=== PATIENT | female | born 1940 | race Caucasian/White ===

== ENCOUNTER 2018-01-22 10:12 | Inpatient (IN) | payer MEDICARE, BC ==
[~2018-01-22] VITALS: Ht 160 cm; Wt 69.9 kg
[2018-01-22] VITALS (12 sets, daily range): BP systolic 141–171; BP diastolic 66–99
[~2018-01-22 10:12] MED LIST: ASPI-4 PO; CARV-50 PO; CLOP75TA35 PO; ENAL5TAB PO; GLYB5TAB7 PO; HYDR12.55 PO; NITR0.4T51 SL
[2018-01-22] MEDS ORDERED: normal saline 1000ml 1,000 ML IV SCH (11:00)
[2018-01-22] MEDS ORDERED: LORazepam 0.5 MG tablet PO PRN (11:00)
[2018-01-22] MEDS ORDERED: diphenhydrAMINE 25mg capsule PO PRN (11:00)
[2018-01-22] MEDS ORDERED: nitroGLYCERIN 0.4mg SUBLingual tab SL PRN (11:00)
[2018-01-22] MEDS ORDERED: dextrose ORAL solution 15 GM/59 ML bottle PO PRN ×2 (11:05)
[2018-01-22] MEDS ORDERED: dextrose 50%-water 50ml dispensing syringe IV PRN ×2 (11:05)
[2018-01-22] MEDS ORDERED: MESSAGE TO PHARMACY PO ONE ×2 (11:05→16:15)
[2018-01-22] MEDS ORDERED: glucagon, human recombinant 1mg kit SUBCUT PRN (11:05)
[2018-01-22] MEDS ORDERED: midazolam 2 mg/2 ml injection ONE (11:51)
[2018-01-22] MEDS ORDERED: LIDOcaine 1% (10mg/ml)w/preservative injection 20ml MDV ONE (11:52)
[2018-01-22] MEDS ORDERED: fentaNYL/PF 50MCG/1 ML 2ML syringe ONE (11:52)
[2018-01-22] MEDS ORDERED: iohexol 350 MG/ML 50ML vial IV ONE ×2 (11:52→12:52)
[2018-01-22] MEDS ORDERED: iohexol 350MG/ML 100ml bottle IV ONE (11:52)
[2018-01-22] MEDS ORDERED: hydrALAZINE 20mg/ml inj. IV ONE (12:37)
[2018-01-22] MEDS ORDERED: furosemide 40mg/4ml inj ONE (13:10)
[2018-01-22 14:05] LABS: ISTAT HGB ART 9.9 g/dl (12.0-16.0); ISTAT Hct ART 29 %PCV (35-48); ISTAT O2 SATURATION ARTERIAL 93 % (95-98); ISTAT SOURCE ART
[2018-01-22 14:05] LABS: ISTAT Hct MIX 28 %PCV (35-48); ISTAT O2 SATURATION MIX VENOUS 62 % (60-80); ISTAT SOURCE MIX
[2018-01-22] MEDS ORDERED: HYDROcodone/acetaminophen 5mg/325mg tablet PO PRN (14:15)
[2018-01-22] MEDS ORDERED: acetaminophen 325mg tablet PO PRN ×2 (14:15→16:15)
[2018-01-22] MEDS ORDERED: proCHLORperazine 10 MG/2 ml inj IV PRN (14:15)
[2018-01-22] MEDS ORDERED: OXAZEpam 15mg capsule PO PRN (14:15)
[2018-01-22] MEDS ORDERED: potassium Cl 20 mEq SR tablet PO ONE (14:20)
[2018-01-22] MEDS ORDERED: MESSAGE TO NURSING PO ONE ×4 (15:10)
[2018-01-22] MEDS: HYDROcodone/acetaminophen 10/325mg tab PO PRN ×2 (16:06→22:07)
[2018-01-22] MEDS ORDERED: magnesium Cl slow-release 64mg tablet PO PRN (16:15)
[2018-01-22] MEDS ORDERED: magnesium 4gm in 100ml NS 100 ML IV PRN (16:15)
[2018-01-22] MEDS ORDERED: magnesium 1gm/100ml D5W IVPB 100 ML IV PRN (16:15)
[2018-01-22] MEDS ORDERED: mag hydrox/Alum hydrox/simeth 30ml oral suspension PO PRN (16:15)
[2018-01-22] MEDS ORDERED: potassium Cl 40MEQ/NS 500ml 500 ML IV PRN ×2 (16:15)
[2018-01-22] MEDS ORDERED: magnesium hydroxide 30ml (MOM) UD suspension PO PRN (16:15)
[2018-01-22] MEDS ORDERED: potassium Cl 20 mEq SR tablet PO PRN (16:15)
[2018-01-22] MEDS ORDERED: ondansetron/PF 4mg/2ml inj IV PRN (16:15)
[2018-01-22] MEDS ORDERED: bisacodyl 10mg suppository rectal RC PRN (16:15)
[2018-01-22 18:54] LABS: INR 1.1 INR; PARTIAL THROMBOPLASTIN TIME 25 SECONDS (22-32); PROTHROMBIN TIME 11.5 SECONDS (9.0-12.0)
[2018-01-22 18:58] LABS: HEMATOCRIT 33.7 % (35.0-45.0); HEMOGLOBIN 11.6 g/dl (12.0-16.0); MEAN CORPUSCULAR HGB CONC 34.4 % (33.0-36.5); MEAN CORPUSCULAR VOLUME 98.8 FL (78-98); MEAN PLATELET VOLUME 8.1 FL (7.4-10.4); PLATELET COUNT 253 X10'3 (140-440); RED BLOOD COUNT 3.41 X10'6 (4.20-5.60); RED CELL DISTRIBUTION WIDTH 12.7 % (11.5-14.5); WHITE BLOOD COUNT 9.3 X10'3 (4.5-11.0)
[2018-01-22 18:59] LABS: ALANINE AMINOTRANSFERASE 61 U/L (12-78); ALBUMIN 3.2 G/DL (3.4-5.0); ALKALINE PHOSPHATASE 144 IU/L (46-116); ANION GAP 10 (8-16); ASPARTATE AMINO TRANSFERASE 43 U/L (10-37); BILIRUBIN,TOTAL 0.9 MG/DL (0.1-1.0); BLOOD UREA NITROGEN 27 MG/DL (7-18); CALCIUM 8.8 MG/DL (8.5-10.1); CHLORIDE 106 MMOL/L (99-107); CREATININE 0.93 MG/DL (0.40-0.90); GLUCOSE 226 MG/DL (70-104); POTASSIUM 3.2 MMOL/L (3.5-5.1); SODIUM 142 MMOL/L (135-145); TOTAL PROTEIN 6.4 G/DL (6.4-8.2); eGFR 58 ML/MIN
[2018-01-22] MEDS: heparin, porcine 5000 units/ml vial SQ SCH (20:00)
[2018-01-22] MEDS ORDERED: furosemide 20 MG/2 ML vial IV SCH (20:00)
[2018-01-22] MEDS: mupirocin 2% nasal ointment 1gm UD NS SCH (20:26)
[2018-01-22] MEDS: docusate sod 100mg capsule PO SCH (20:26)
[2018-01-22] MEDS: carVEDilol 12.5mg tablet PO SCH (20:26)
[2018-01-22] MEDS: insulin Lispro (HumaLOG) vial - multi-dose SQ SCH (20:38)
[2018-01-22] MEDS: insulin glargine (Lantus) pen - multi-dose SQ SCH (22:09)
[2018-01-22] MEDS: sodium chloride 0.45% 1,000 ML IV SCH (22:21)
[2018-01-23 02:00] VITALS: BP 141/80
[2018-01-23 06:00] VITALS: BP 137/81
[2018-01-23 06:57] LABS: BASOPHILS # (AUTO) 0.1 X10'3 (0-0.2); BASOPHILS % (AUTO) 0.6 % (0-1); EOSINOPHILS # (AUTO) 0.4 X10'3 (0-0.9); HEMATOCRIT 30.8 % (35.0-45.0); HEMOGLOBIN 10.9 g/dl (12.0-16.0); LYMPHOCYTES # (AUTO) 1.6 X10'3 (1.1-4.8); LYMPHOCYTES % (AUTO) 18.1 % (21-51); MEAN CORPUSCULAR HEMOGLOBIN 34.5 PG (27.0-31.0); MEAN CORPUSCULAR HGB CONC 35.4 % (33.0-36.5); MEAN CORPUSCULAR VOLUME 97.4 FL (78-98); MONOCYTES % (AUTO) 11.1 % (2-12); NEUTROPHILS # (AUTO) 5.7 X10'3 (1.8-7.7); NEUTROPHILS % (AUTO) 66.2 % (42-75); PLATELET COUNT 262 X10'3 (140-440); RED BLOOD COUNT 3.17 X10'6 (4.20-5.60); RED CELL DISTRIBUTION WIDTH 13.1 % (11.5-14.5); WHITE BLOOD COUNT 8.8 X10'3 (4.5-11.0)
[2018-01-23 07:04] LABS: ANION GAP 9 (8-16); BLOOD UREA NITROGEN 30 MG/DL (7-18); BUN/CREATININE RATIO 32.3 (6.6-38.0); CALCIUM 8.7 MG/DL (8.5-10.1); CHLORIDE 108 MMOL/L (99-107); CREATININE 0.93 MG/DL (0.40-0.90); GLUCOSE 83 MG/DL (70-104); MAGNESIUM 1.8 MG/DL (1.5-2.4); POTASSIUM 3.4 MMOL/L (3.5-5.1); SODIUM 144 MMOL/L (135-145); TOTAL CARBON DIOXIDE 26.8 MMOL/L (24-32); eGFR 58 ML/MIN
[2018-01-23] MEDS: mupirocin 2% nasal ointment 1gm UD NS SCH ×2 (08:00→20:12)
[2018-01-23] MEDS ORDERED: glimepiride 1 MG tablet PO SCH (08:00)
[2018-01-23] MEDS: K and/or MAG REPLACEMENT MC SCH (08:00)
[2018-01-23] MEDS: potassium chloride 10mEq ER tablet PO SCH (08:00)
[2018-01-23] MEDS ORDERED: albuterol 2.5 MG/3 ML nebule NEB ONE (08:40)
[2018-01-23 08:56] LABS: ABG BASE EXCESS -0.9 mmol/L (-2.0-3.0); ABG HCO3 22.7 mmol/L (22.0-26.0); ABG OXYGEN SATURATION 96.4 % (95-98); ABG PCO2 (T) 33.9 mmHg (32.0-45.0); ABG PH (T) 7.443 (7.350-7.450); ABG PO2 (T) 76.2 mmHg (83-108); ALLEN'S TEST Positive; FCOHb 0.7 % (0.5-1.5); FMetHb 0.1 % (0.3-1.12); FO2Hb 95.6 % (94-100); TOTAL HEMOGLOBIN 11.6 G/dl (12.0-16.0)
[2018-01-23] MEDS: potassium Cl 20 mEq SR tablet PO PRN ×3 (09:21→17:48)
[2018-01-23] MEDS: carVEDilol 12.5mg tablet PO SCH ×2 (09:21→20:13)
[2018-01-23] MEDS: furosemide 40mg tablet PO SCH (09:22)
[2018-01-23] MEDS: heparin, porcine 5000 units/ml vial SQ SCH (09:22)
[2018-01-23] MEDS: docusate sod 100mg capsule PO SCH ×2 (09:22→20:13)
[2018-01-23] MEDS ORDERED: MESSAGE TO NURSING PO ONE (10:00)
[2018-01-23 11:00] VITALS: BP 148/86
[2018-01-23] MEDS: insulin Lispro (HumaLOG) vial - multi-dose SQ SCH ×2 (13:55→19:23)
[2018-01-23 15:00] VITALS: BP 139/73
[2018-01-23 18:00] VITALS: BP 142/76
[2018-01-23] MEDS: HYDROcodone/acetaminophen 10/325mg tab PO PRN (20:12)
[2018-01-23] MEDS: insulin glargine (Lantus) pen - multi-dose SQ SCH (21:41)
[2018-01-23 22:00] VITALS: BP 129/64
[2018-01-24 02:00] VITALS: BP 112/65
[2018-01-24 06:00] VITALS: BP 128/71
[2018-01-24 06:39] LABS: BASOPHILS % (AUTO) 0.4 % (0-1); EOSINOPHILS # (AUTO) 0.3 X10'3 (0-0.9); HEMATOCRIT 31.5 % (35.0-45.0); HEMOGLOBIN 10.9 g/dl (12.0-16.0); LYMPHOCYTES # (AUTO) 1.5 X10'3 (1.1-4.8); LYMPHOCYTES % (AUTO) 16.9 % (21-51); MEAN CORPUSCULAR HEMOGLOBIN 34.2 PG (27.0-31.0); MEAN CORPUSCULAR HGB CONC 34.6 % (33.0-36.5); MEAN CORPUSCULAR VOLUME 98.7 FL (78-98); MEAN PLATELET VOLUME 7.9 FL (7.4-10.4); MONOCYTES # (AUTO) 0.9 X10'3 (0-0.9); MONOCYTES % (AUTO) 10.3 % (2-12); NEUTROPHILS # (AUTO) 6.4 X10'3 (1.8-7.7); NEUTROPHILS % (AUTO) 69.4 % (42-75); PLATELET COUNT 245 X10'3 (140-440); RED BLOOD COUNT 3.19 X10'6 (4.20-5.60); RED CELL DISTRIBUTION WIDTH 12.8 % (11.5-14.5); WHITE BLOOD COUNT 9.1 X10'3 (4.5-11.0)
[2018-01-24 06:51] LABS: ALBUMIN 2.8 G/DL (3.4-5.0); ANION GAP 8 (8-16); BLOOD UREA NITROGEN 30 MG/DL (7-18); BUN/CREATININE RATIO 30.9 (6.6-38.0); CALCIUM 8.9 MG/DL (8.5-10.1); CHLORIDE 104 MMOL/L (99-107); CREATININE 0.97 MG/DL (0.40-0.90); GLUCOSE 79 MG/DL (70-104); MAGNESIUM 1.7 MG/DL (1.5-2.4); SODIUM 139 MMOL/L (135-145); TOTAL CARBON DIOXIDE 27.5 MMOL/L (24-32); eGFR 56 ML/MIN
[2018-01-24] MEDS: sodium chloride 0.45% 1,000 ML IV SCH (07:55)
[2018-01-24] MEDS: mupirocin 2% nasal ointment 1gm UD NS SCH (08:00)
[2018-01-24] MEDS: K and/or MAG REPLACEMENT MC SCH (08:00)
[2018-01-24] MEDS: potassium chloride 10mEq ER tablet PO SCH (08:09)
[2018-01-24] MEDS: docusate sod 100mg capsule PO SCH ×2 (08:09→19:38)
[2018-01-24] MEDS: furosemide 40mg tablet PO SCH (08:09)
[2018-01-24] MEDS: carVEDilol 12.5mg tablet PO SCH ×2 (08:09→19:38)
[2018-01-24] MEDS: insulin Lispro (HumaLOG) vial - multi-dose SQ SCH ×3 (09:11→19:27)
[2018-01-24 11:00] VITALS: BP 119/69
[2018-01-24] MEDS: HYDROcodone/acetaminophen 10/325mg tab PO PRN ×2 (11:53→22:24)
[2018-01-24 15:00] VITALS: BP 115/67
[2018-01-24 18:00] VITALS: BP 114/64
[2018-01-24 22:00] VITALS: BP 143/80
[2018-01-24] MEDS: insulin glargine (Lantus) pen - multi-dose SQ SCH (22:21)
[2018-01-25 02:00] VITALS: BP 127/71
[2018-01-25 06:35] LABS: BASOPHILS % (AUTO) 0.2 % (0-1); EOSINOPHILS # (AUTO) 0.2 X10'3 (0-0.9); EOSINOPHILS % (AUTO) 1.3 % (0-6); HEMATOCRIT 31.7 % (35.0-45.0); HEMOGLOBIN 11.3 g/dl (12.0-16.0); LYMPHOCYTES % (AUTO) 7.7 % (21-51); MEAN CORPUSCULAR HEMOGLOBIN 34.7 PG (27.0-31.0); MEAN CORPUSCULAR HGB CONC 35.5 % (33.0-36.5); MEAN PLATELET VOLUME 7.7 FL (7.4-10.4); MONOCYTES # (AUTO) 1.2 X10'3 (0-0.9); MONOCYTES % (AUTO) 9.4 % (2-12); NEUTROPHILS # (AUTO) 10.2 X10'3 (1.8-7.7); NEUTROPHILS % (AUTO) 81.4 % (42-75); PLATELET COUNT 240 X10'3 (140-440); RED BLOOD COUNT 3.24 X10'6 (4.20-5.60); RED CELL DISTRIBUTION WIDTH 12.8 % (11.5-14.5); WHITE BLOOD COUNT 12.6 X10'3 (4.5-11.0)
[2018-01-25 06:39] LABS: ALBUMIN 2.8 G/DL (3.4-5.0); ANION GAP 8 (8-16); BLOOD UREA NITROGEN 30 MG/DL (7-18); BUN/CREATININE RATIO 38.5 (6.6-38.0); CALCIUM 8.4 MG/DL (8.5-10.1); CHLORIDE 100 MMOL/L (99-107); CREATININE 0.78 MG/DL (0.40-0.90); GLUCOSE 82 MG/DL (70-104); MAGNESIUM 1.8 MG/DL (1.5-2.4); POTASSIUM 3.8 MMOL/L (3.5-5.1); SODIUM 136 MMOL/L (135-145); TOTAL CARBON DIOXIDE 27.8 MMOL/L (24-32); eGFR 71 ML/MIN
[2018-01-25 06:50] VITALS: BP 131/70
[2018-01-25] MEDS: ondansetron/PF 4mg/2ml inj IV PRN ×2 (07:45→13:42)
[2018-01-25] MEDS: HYDROcodone/acetaminophen 10/325mg tab PO PRN (07:46)
[2018-01-25] MEDS: carVEDilol 12.5mg tablet PO SCH ×2 (07:47→20:58)
[2018-01-25] MEDS: furosemide 40mg tablet PO SCH (07:47)
[2018-01-25] MEDS: potassium chloride 10mEq ER tablet PO SCH (07:47)
[2018-01-25] MEDS: docusate sod 100mg capsule PO SCH ×2 (07:47→20:58)
[2018-01-25] MEDS: K and/or MAG REPLACEMENT MC SCH (08:00)
[2018-01-25] MEDS ORDERED: HYDROcodone/acetaminophen 10/325mg tab PO ONE (10:15)
[2018-01-25 11:00] VITALS: BP 106/58
[2018-01-25] MEDS ORDERED: vancomycin/NS 1 GM ADD-VANTAGE 250 ML IV ONE (11:00)
[2018-01-25] MEDS ORDERED: ceFAZolin 2gm in dextrose, iso 100 ML IV ONE (11:00)
[2018-01-25 15:00] VITALS: BP 111/61
[2018-01-25 19:00] VITALS: BP 121/59
[2018-01-25] MEDS ORDERED: mupirocin 2% ointment 22GM NS SCH (20:00)
[2018-01-25] MEDS ORDERED: dextrose 50%-water 50ml dispensing syringe IV PRN (20:55)
[2018-01-25] MEDS: mupirocin 2% nasal ointment 1gm UD NS SCH (20:59)
[2018-01-25] MEDS: insulin glargine (Lantus) pen - multi-dose SQ SCH (21:22)
[2018-01-25 23:00] VITALS: BP 123/64
[2018-01-25] MEDS: sodium chloride 0.45% 1,000 ML IV SCH (23:55)
[2018-01-26] VITALS (12 sets, daily range): BP systolic 108–142; BP diastolic 48–74
[2018-01-26] MEDS: HYDROcodone/acetaminophen 10/325mg tab PO PRN (01:44)
[2018-01-26 05:17] LABS: INR 1.2 INR
[2018-01-26 05:21] LABS: BASOPHILS % (AUTO) 0.2 % (0-1); EOSINOPHILS # (AUTO) 0.1 X10'3 (0-0.9); EOSINOPHILS % (AUTO) 0.5 % (0-6); HEMATOCRIT 28.3 % (35.0-45.0); LYMPHOCYTES # (AUTO) 0.8 X10'3 (1.1-4.8); LYMPHOCYTES % (AUTO) 5.5 % (21-51); MEAN CORPUSCULAR HEMOGLOBIN 34.8 PG (27.0-31.0); MEAN CORPUSCULAR HGB CONC 35.3 % (33.0-36.5); MEAN CORPUSCULAR VOLUME 98.6 FL (78-98); MEAN PLATELET VOLUME 7.9 FL (7.4-10.4); MONOCYTES # (AUTO) 1.4 X10'3 (0-0.9); MONOCYTES % (AUTO) 9.6 % (2-12); NEUTROPHILS # (AUTO) 11.8 X10'3 (1.8-7.7); NEUTROPHILS % (AUTO) 84.2 % (42-75); PLATELET COUNT 215 X10'3 (140-440); RED BLOOD COUNT 2.87 X10'6 (4.20-5.60); RED CELL DISTRIBUTION WIDTH 12.3 % (11.5-14.5); WHITE BLOOD COUNT 14.1 X10'3 (4.5-11.0)
[2018-01-26 05:23] LABS: ALBUMIN 2.5 G/DL (3.4-5.0); ANION GAP 6 (8-16); BLOOD UREA NITROGEN 32 MG/DL (7-18); BUN/CREATININE RATIO 31.7 (6.6-38.0); CALCIUM 8.7 MG/DL (8.5-10.1); CHLORIDE 99 MMOL/L (99-107); CREATININE 1.01 MG/DL (0.40-0.90); GLUCOSE 165 MG/DL (70-104); MAGNESIUM 2.1 MG/DL (1.5-2.4); POTASSIUM 4.2 MMOL/L (3.5-5.1); SODIUM 134 MMOL/L (135-145); TOTAL CARBON DIOXIDE 29.1 MMOL/L (24-32); eGFR 53 ML/MIN
[2018-01-26] MEDS ORDERED: ringers solution, lacted 1,000 ML IV SCH (05:30)
[2018-01-26] MEDS ORDERED: ceFAZolin 2gm in dextrose, iso 100 ML IV ONE (05:30)
[2018-01-26] MEDS ORDERED: vancomycin/NS 1 GM ADD-VANTAGE 250 ML IV ONE (05:30)
[2018-01-26] MEDS ORDERED: LORazepam 2 mg/ml vial IV ONE (06:00)
[2018-01-26] MEDS ORDERED: famotidine 20mg tablet PO ONE ×2 (06:00→06:21)
[2018-01-26] MEDS ORDERED: ePHEDrine 50MG/ML INJ. ONE (06:46)
[2018-01-26] MEDS ORDERED: protamine sulf. 10mg/ml inj. IV ONE (06:46)
[2018-01-26] MEDS ORDERED: sevoflurane 250ml liquid IH ONE (06:46)
[2018-01-26] MEDS ORDERED: DOPamine/D5W 400mg/250ml bag IV ONE (06:46)
[2018-01-26] MEDS ORDERED: INSULIN R 100 UNIT in NS 100ML (1 UNIT/1 ML) BAG IV ONE (06:46)
[2018-01-26] MEDS ORDERED: aminocaproic acid 250 MG/1 ML inj. ONE (06:46)
[2018-01-26] MEDS ORDERED: MIDAZolam 1mg/ml 10ml vial ONE (06:50)
[2018-01-26] MEDS ORDERED: SUFENTANIL CITRATE 50 MCG/ML 2ml ampule IV ONE (06:50)
[2018-01-26] MEDS ORDERED: rocuronium 10mg/ml inj IV ONE ×2 (06:59→07:46)
[2018-01-26] MEDS ORDERED: propofol inj 20 ML IV ONE (06:59)
[2018-01-26 07:45] LABS: ABG HCO3 24.5 mmol/L (22.0-26.0); ABG OXYGEN SATURATION 98.8 % (95-98); ABG PCO2 34.8 mmHg (35.0-45.0); ABG PH 7.466 (7.350-7.450); ABG PO2 139.4 mmHg (60.0-100.0); CL (ABG) 96 mmol/L (99-107); FCOHb 1.7 % (0.5-1.5); FMetHb 0.2 % (0.3-1.12); FO2Hb 96.9 % (94-100); GLUCOSE (ABG) 144 mg/dl (70-105); IONIZED CA (ABG) 1.09 mmol/L (1.03-1.32); K (ABG) 3.8 mmol/L (3.3-5.1); NA (ABG) 125 mmol/L (135-145); TOTAL HEMOGLOBIN 9.1 G/dl (12.0-16.0)
[2018-01-26] MEDS ORDERED: heparin 10,000 units/1 ML INJ IR ONE (07:48)
[2018-01-26] MEDS ORDERED: papaverine 30 mg/ml 2ml inj. IA ONE (07:49)
[2018-01-26] MEDS: mupirocin 2% nasal ointment 1gm UD NS SCH ×2 (08:00→20:10)
[2018-01-26] MEDS: K and/or MAG REPLACEMENT MC SCH (08:00)
[2018-01-26] MEDS: furosemide 40mg tablet PO SCH (08:00)
[2018-01-26] MEDS: potassium chloride 10mEq ER tablet PO SCH (08:00)
[2018-01-26] MEDS: carVEDilol 12.5mg tablet PO SCH (08:00)
[2018-01-26] MEDS: docusate sod 100mg capsule PO SCH ×2 (08:00→20:00)
[2018-01-26] MEDS ORDERED: papaverine 30 mg/ml 2ml inj. ONE (09:00)
[2018-01-26] MEDS ORDERED: potassium Cl 2 mEq/ml inj IV ONE (09:00)
[2018-01-26] MEDS ORDERED: heparin 10,000 units/1 ML INJ ONE (09:00)
[2018-01-26] MEDS ORDERED: insulin Lispro (HumaLOG) vial - multi-dose SQ SCH (09:00)
[2018-01-26 09:05] LABS: ABG BASE EXCESS 0.5 mmol/L (-2.0-3.0); ABG HCO3 24.8 mmol/L (22.0-26.0); ABG OXYGEN SATURATION 99.8 % (95-98); ABG PCO2 37.8 mmHg (35.0-45.0); ABG PH 7.434 (7.350-7.450); ABG PO2 422.5 mmHg (60.0-100.0); CL (ABG) 98 mmol/L (99-107); FCOHb 2.2 % (0.5-1.5); FO2Hb 97.6 % (94-100); GLUCOSE (ABG) 104 mg/dl (70-105); IONIZED CA (ABG) 1.02 mmol/L (1.03-1.32); K (ABG) 4.6 mmol/L (3.3-5.1); NA (ABG) 126 mmol/L (135-145); TOTAL HEMOGLOBIN 7.3 G/dl (12.0-16.0)
[2018-01-26 09:30] LABS: ABG BASE EXCESS VENOUS 1.4 mmol/L; ABG HCO3 VENOUS 26.4 mmol/L; ABG PCO2 VENOUS 43.5 mmHg; ABG PO2 VENOUS 51.9 mmHg; CL (ABG) 99 mmol/L (99-107); FCOHb VENOUS 1.8 %; FHHb VENOUS 9.7 %; FMetHb VENOUS 0.1 %; FO2Hb VENOUS 88.4 %; GLUCOSE (ABG) 120 mg/dl (70-105); IONIZED CA (ABG) 1.02 mmol/L (1.03-1.32); K (ABG) 4.5 mmol/L (3.3-5.1); NA (ABG) 126 mmol/L (135-145); TOTAL HEMOGLOBIN 8.3 G/dl (12.0-16.0)
[2018-01-26 09:55] LABS: ACT @ 1.70 U 350 SEC (193-297); ACT @ 2.84 U 516 SEC (260-420); BASELINE ACT 157 SEC (101-148); PATIENT WEIGHT 63.0k KG
[2018-01-26 09:55] LABS: ABG OXYGEN SATURATION 99.1 % (95-98); ABG PCO2 43.2 mmHg (35.0-45.0); ABG PH 7.397 (7.350-7.450); ABG PO2 248.3 mmHg (60.0-100.0); CL (ABG) 100 mmol/L (99-107); FCOHb 1.1 % (0.5-1.5); FMetHb 0.2 % (0.3-1.12); FO2Hb 97.8 % (94-100); GLUCOSE (ABG) 121 mg/dl (70-105); IONIZED CA (ABG) 1.06 mmol/L (1.03-1.32); K (ABG) 4.7 mmol/L (3.3-5.1); NA (ABG) 128 mmol/L (135-145)
[2018-01-26 10:20] LABS: ABG BASE EXCESS 1.9 mmol/L (-2.0-3.0); ABG HCO3 25.6 mmol/L (22.0-26.0); ABG OXYGEN SATURATION 99.2 % (95-98); ABG PH 7.469 (7.350-7.450); ABG PO2 262.7 mmHg (60.0-100.0); CL (ABG) 101 mmol/L (99-107); FCOHb 1.2 % (0.5-1.5); FMetHb 0.2 % (0.3-1.12); FO2Hb 97.8 % (94-100); GLUCOSE (ABG) 120 mg/dl (70-105); IONIZED CA (ABG) 1.05 mmol/L (1.03-1.32); K (ABG) 4.7 mmol/L (3.3-5.1); NA (ABG) 128 mmol/L (135-145); TOTAL HEMOGLOBIN 9.2 G/dl (12.0-16.0)
[2018-01-26 10:51] LABS: ABG BASE EXCESS 1.7 mmol/L (-2.0-3.0); ABG HCO3 23.7 mmol/L (22.0-26.0); ABG OXYGEN SATURATION 99.4 % (95-98); ABG PCO2 27.6 mmHg (35.0-45.0); ABG PH 7.552 (7.350-7.450); ABG PO2 308.2 mmHg (60.0-100.0); CL (ABG) 102 mmol/L (99-107); FCOHb 1.4 % (0.5-1.5); FMetHb 0.1 % (0.3-1.12); FO2Hb 97.9 % (94-100); GLUCOSE (ABG) 121 mg/dl (70-105); IONIZED CA (ABG) 1.01 mmol/L (1.03-1.32); NA (ABG) 129 mmol/L (135-145); TOTAL HEMOGLOBIN 8.7 G/dl (12.0-16.0)
[2018-01-26 11:10] LABS: ABG BASE EXCESS 3.8 mmol/L (-2.0-3.0); ABG HCO3 26.7 mmol/L (22.0-26.0); ABG OXYGEN SATURATION 99.4 % (95-98); ABG PH 7.526 (7.350-7.450); ABG PO2 362.1 mmHg (60.0-100.0); CL (ABG) 101 mmol/L (99-107); FCOHb 1.4 % (0.5-1.5); FMetHb 0.2 % (0.3-1.12); FO2Hb 97.8 % (94-100); GLUCOSE (ABG) 116 mg/dl (70-105); IONIZED CA (ABG) 1.15 mmol/L (1.03-1.32); K (ABG) 4.8 mmol/L (3.3-5.1); NA (ABG) 129 mmol/L (135-145)
[2018-01-26] MEDS ORDERED: calcium chloride 100 MG/1 ML inj IV ONE (11:25)
[2018-01-26 11:51] LABS: ABG BASE EXCESS VENOUS 2.2 mmol/L; ABG PCO2 VENOUS 43.4 mmHg; ABG PO2 VENOUS 31.2 mmHg; CL (ABG) 103 mmol/L (99-107); FCOHb VENOUS 1.6 %; FHHb VENOUS 33.5 %; FMetHb VENOUS 0.5 %; FO2Hb VENOUS 64.4 %; GLUCOSE (ABG) 133 mg/dl (70-105); IONIZED CA (ABG) 1.25 mmol/L (1.03-1.32); K (ABG) 4.3 mmol/L (3.3-5.1); NA (ABG) 129 mmol/L (135-145); TOTAL HEMOGLOBIN 8.3 G/dl (12.0-16.0)
[2018-01-26 12:06] LABS: ABG BASE EXCESS -0.8 mmol/L (-2.0-3.0); ABG HCO3 23.5 mmol/L (22.0-26.0); ABG OXYGEN SATURATION 92.8 % (95-98); ABG PCO2 37.5 mmHg (35.0-45.0); ABG PH 7.415 (7.350-7.450); ABG PO2 64.9 mmHg (60.0-100.0); CL (ABG) 104 mmol/L (99-107); FCOHb 0.9 % (0.5-1.5); FMetHb 0.3 % (0.3-1.12); FO2Hb 91.7 % (94-100); GLUCOSE (ABG) 135 mg/dl (70-105); IONIZED CA (ABG) 1.33 mmol/L (1.03-1.32); K (ABG) 4.1 mmol/L (3.3-5.1); NA (ABG) 130 mmol/L (135-145); TOTAL HEMOGLOBIN 10.1 G/dl (12.0-16.0)
[2018-01-26 12:36] LABS: ACTIVATED CLOTTING TIME 140 SEC (101-148)
[2018-01-26 12:36] LABS: ACTIVATED CLOTTING TIME 56 SEC (101-148)
[2018-01-26] MEDS ORDERED: nitroGLYCERIN-Tridil 50MG/D5W 250 ML IV PRN (12:49)
[2018-01-26] MEDS ORDERED: DOPamine 400mg/D5W 250ml 250 ML IV PRN (12:49)
[2018-01-26] MEDS ORDERED: Neutra Phos packet PO PRN (12:50)
[2018-01-26] MEDS ORDERED: acetaminophen 325mg tablet PO PRN (12:50)
[2018-01-26] MEDS ORDERED: sodium phosphate inj. 15 MMOL in dextrose 5%-water 150 ML IV PRN (12:50)
[2018-01-26] MEDS ORDERED: sodium phosphate inj. 30 MMOL in dextrose 5%-water 250 ML IV PRN (12:50)
[2018-01-26] MEDS ORDERED: potassium Cl 20mEq/100mL bag 100 ML IV PRN ×2 (12:50)
[2018-01-26] MEDS ORDERED: morphine 4 MG/ML inj SYRINge IV PRN (12:50)
[2018-01-26] MEDS ORDERED: normal saline 250ml IV soln 250 ML IV PRN (12:50)
[2018-01-26] MEDS ORDERED: magnesium 4gm in 100ml NS 100 ML IV PRN (12:50)
[2018-01-26] MEDS ORDERED: insulin regular, human inj. 100 UNITS in normal saline 100ml IV soln 100 ML IV SCH ×2 (12:50)
[2018-01-26] MEDS ORDERED: dextrose 50%-water 50ml dispensing syringe IV PRN (12:50)
[2018-01-26] MEDS ORDERED: metoclopramide 5 mg/ml inj IV PRN (12:50)
[2018-01-26] MEDS: insulin regular, human inj. 100 UNITS in normal saline 100ml IV soln 100 ML IV SCH ×4 (13:00→15:06)
[2018-01-26] MEDS: insulin Lispro (HumaLOG) vial - multi-dose SQ SCH ×2 (13:00→18:00)
[2018-01-26 13:06] LABS: ABG HCO3 21.4 mmol/L (22.0-26.0); ABG OXYGEN SATURATION 96.5 % (95-98); ABG PCO2 (T) 31.1 mmHg (32.0-45.0); ABG PO2 (T) 77.3 mmHg (83-108); FCOHb 1.4 % (0.5-1.5); FMetHb 0.2 % (0.3-1.12); MINUTE VOLUME 7 L/min; PATIENT TEMPERATURE 35.7; PEEP 5 cm H2O; RESPIRATORY RATE 12 b/min; RESPIRATORY RATE (OBSERVED) 12 b/min; TIDAL VOLUME 500 mL; TOTAL HEMOGLOBIN 14.4 G/dl (12.0-16.0)
[2018-01-26] MEDS ORDERED: albumin (Human) 5% 250ml 250 ML IV ONE (13:11)
[2018-01-26] MEDS: albumin (Human) 5% 250ml 250 ML IV PRN ×2 (13:13→14:21)
[2018-01-26 13:22] LABS: BASOPHILS % (AUTO) 0 % (0-1); EOSINOPHILS # (AUTO) 0.1 X10'3 (0-0.9); EOSINOPHILS % (AUTO) 0.4 % (0-6); HEMATOCRIT 39.9 % (35.0-45.0); LYMPHOCYTES # (AUTO) 0.6 X10'3 (1.1-4.8); LYMPHOCYTES % (AUTO) 2.2 % (21-51); MEAN CORPUSCULAR HEMOGLOBIN 33.9 PG (27.0-31.0); MEAN CORPUSCULAR VOLUME 96.9 FL (78-98); MEAN PLATELET VOLUME 7.6 FL (7.4-10.4); MONOCYTES # (AUTO) 1.3 X10'3 (0-0.9); MONOCYTES % (AUTO) 5.2 % (2-12); NEUTROPHILS # (AUTO) 23.1 X10'3 (1.8-7.7); NEUTROPHILS % (AUTO) 92.2 % (42-75); PLATELET COUNT 110 X10'3 (140-440); RED BLOOD COUNT 4.11 X10'6 (4.20-5.60)
[2018-01-26 13:34] LABS: WHITE BLOOD COUNT 25.1 X10'3 (4.5-11.0)
[2018-01-26 13:37] LABS: INR 1.4 INR; PARTIAL THROMBOPLASTIN TIME 33 SECONDS (22-32); PROTHROMBIN TIME 14.4 SECONDS (9.0-12.0)
[2018-01-26 13:55] LABS: ALANINE AMINOTRANSFERASE 14 U/L (12-78); ALBUMIN/GLOBULIN RATIO 0.9 (1.1-1.5); ALKALINE PHOSPHATASE 78 IU/L (46-116); ANION GAP 10 (8-16); ASPARTATE AMINO TRANSFERASE 43 U/L (10-37); BILIRUBIN,TOTAL 1.9 MG/DL (0.1-1.0); BLOOD UREA NITROGEN 26 MG/DL (7-18); BUN/CREATININE RATIO 32.9 (6.6-38.0); CALCIUM 9.1 MG/DL (8.5-10.1); CHLORIDE 106 MMOL/L (99-107); CREATININE 0.79 MG/DL (0.40-0.90); GLUCOSE 144 MG/DL (70-104); MAGNESIUM 3.4 MG/DL (1.5-2.4); PHOSPHORUS 2.4 MG/DL (2.3-4.5); SODIUM 138 MMOL/L (135-145); TOTAL PROTEIN 4.3 G/DL (6.4-8.2); eGFR 70 ML/MIN
[2018-01-26] MEDS: sodium chloride 0.45% 1,000 ML IV SCH (13:57)
[2018-01-26] MEDS ORDERED: methylPREDNISolone sod succ/PF 40mg inj. IV SCH (14:00)
[2018-01-26] MEDS ORDERED: niCARDipine-NS 40mg/200ml IVPB 200 ML IV ONE (14:30)
[2018-01-26 14:32] LABS: PLATELET ESTIMATE DECREASED; TOTAL CELLS COUNTED 100
[2018-01-26] MEDS: potassium Cl 20mEq/100mL bag 100 ML IV PRN ×2 (14:48→21:50)
[2018-01-26] MEDS: morphine 4 MG/ML inj SYRINge IV PRN ×4 (15:31→22:46)
[2018-01-26] MEDS: DOBUTamine-DoBUTrex 500mg/D5W 250 ML IV SCH (15:36)
[2018-01-26] MEDS: ceFAZolin 1GM/D5W- ADD-VANTAGE 50 ML IV SCH (15:36)
[2018-01-26 19:43] LABS: BASOPHILS % (AUTO) 0.1 % (0-1); EOSINOPHILS % (AUTO) 0.1 % (0-6); HEMATOCRIT 34.5 % (35.0-45.0); HEMOGLOBIN 11.9 g/dl (12.0-16.0); LYMPHOCYTES # (AUTO) 0.4 X10'3 (1.1-4.8); LYMPHOCYTES % (AUTO) 2.5 % (21-51); MEAN CORPUSCULAR HEMOGLOBIN 33.3 PG (27.0-31.0); MEAN CORPUSCULAR HGB CONC 34.5 % (33.0-36.5); MEAN CORPUSCULAR VOLUME 96.5 FL (78-98); MEAN PLATELET VOLUME 7.8 FL (7.4-10.4); MONOCYTES # (AUTO) 0.7 X10'3 (0-0.9); MONOCYTES % (AUTO) 4.4 % (2-12); NEUTROPHILS # (AUTO) 15.8 X10'3 (1.8-7.7); NEUTROPHILS % (AUTO) 92.9 % (42-75); PLATELET COUNT 107 X10'3 (140-440); RED BLOOD COUNT 3.57 X10'6 (4.20-5.60); RED CELL DISTRIBUTION WIDTH 13.8 % (11.5-14.5); WHITE BLOOD COUNT 16.9 X10'3 (4.5-11.0)
[2018-01-26 19:44] LABS: ANION GAP 9 (8-16); BLOOD UREA NITROGEN 30 MG/DL (7-18); BUN/CREATININE RATIO 32.3 (6.6-38.0); CALCIUM 8.6 MG/DL (8.5-10.1); CHLORIDE 106 MMOL/L (99-107); CREATININE 0.93 MG/DL (0.40-0.90); GLUCOSE 152 MG/DL (70-104); POTASSIUM 4.2 MMOL/L (3.5-5.1); SODIUM 139 MMOL/L (135-145); TOTAL CARBON DIOXIDE 23.7 MMOL/L (24-32); eGFR 58 ML/MIN
[2018-01-26] MEDS: vancomycin/NS 1 GM ADD-VANTAGE 250 ML IV SCH (20:10)
[2018-01-27] VITALS (23 sets, daily range): BP systolic 96–128; BP diastolic 40–73
[2018-01-27] MEDS: ceFAZolin 1GM/D5W- ADD-VANTAGE 50 ML IV SCH ×4 (00:03→23:29)
[2018-01-27 01:51] LABS: ABG BASE EXCESS -3.5 mmol/L (-2.0-3.0); ABG HCO3 17.6 mmol/L (22.0-26.0); ABG OXYGEN SATURATION 96.3 % (95-98); ABG PH (T) 7.522 (7.350-7.450); ABG PO2 (T) 74.9 mmHg (83-108); FCOHb 0.5 % (0.5-1.5); FMetHb 0.3 % (0.3-1.12); FO2Hb 95.5 % (94-100); MINUTE VOLUME 9 L/min; PEEP 5 cm H2O; TOTAL HEMOGLOBIN 11.8 G/dl (12.0-16.0)
[2018-01-27] MEDS: morphine 4 MG/ML inj SYRINge IV PRN ×4 (01:55→23:29)
[2018-01-27 02:39] LABS: INR 1.2 INR; PARTIAL THROMBOPLASTIN TIME 34 SECONDS (22-32)
[2018-01-27 02:45] LABS: ALANINE AMINOTRANSFERASE 15 U/L (12-78); ALBUMIN 2.8 G/DL (3.4-5.0); ALBUMIN/GLOBULIN RATIO 1.2 (1.1-1.5); ALKALINE PHOSPHATASE 63 IU/L (46-116); ANION GAP 13 (8-16); ASPARTATE AMINO TRANSFERASE 50 U/L (10-37); BILIRUBIN,TOTAL 1.3 MG/DL (0.1-1.0); BLOOD UREA NITROGEN 30 MG/DL (7-18); BUN/CREATININE RATIO 31.3 (6.6-38.0); CALCIUM 8.4 MG/DL (8.5-10.1); CHLORIDE 107 MMOL/L (99-107); CREATININE 0.96 MG/DL (0.40-0.90); GLUCOSE 134 MG/DL (70-104); MAGNESIUM 2.6 MG/DL (1.5-2.4); PHOSPHORUS 3.4 MG/DL (2.3-4.5); POTASSIUM 4.1 MMOL/L (3.5-5.1); SODIUM 140 MMOL/L (135-145); TOTAL CARBON DIOXIDE 20.2 MMOL/L (24-32); TOTAL PROTEIN 5.2 G/DL (6.4-8.2); eGFR 56 ML/MIN
[2018-01-27] MEDS: HYDROcodone/acetaminophen 10/325mg tab PO PRN ×3 (02:55→15:09)
[2018-01-27] MEDS: potassium Cl 20mEq/100mL bag 100 ML IV PRN (03:02)
[2018-01-27 03:05] LABS: BASOPHILS % (AUTO) 0.1 % (0-1); EOSINOPHILS % (AUTO) 0.1 % (0-6); HEMATOCRIT 32.6 % (35.0-45.0); HEMOGLOBIN 11.2 g/dl (12.0-16.0); LYMPHOCYTES # (AUTO) 0.6 X10'3 (1.1-4.8); LYMPHOCYTES % (AUTO) 3.9 % (21-51); MEAN CORPUSCULAR HEMOGLOBIN 33.4 PG (27.0-31.0); MEAN CORPUSCULAR HGB CONC 34.2 % (33.0-36.5); MEAN CORPUSCULAR VOLUME 97.7 FL (78-98); MEAN PLATELET VOLUME 8.5 FL (7.4-10.4); MONOCYTES # (AUTO) 0.7 X10'3 (0-0.9); MONOCYTES % (AUTO) 4.6 % (2-12); NEUTROPHILS # (AUTO) 13.3 X10'3 (1.8-7.7); NEUTROPHILS % (AUTO) 91.3 % (42-75); PLATELET COUNT 111 X10'3 (140-440); RED BLOOD COUNT 3.34 X10'6 (4.20-5.60); RED CELL DISTRIBUTION WIDTH 13.8 % (11.5-14.5); WHITE BLOOD COUNT 14.6 X10'3 (4.5-11.0)
[2018-01-27] MEDS: vancomycin/NS 1 GM ADD-VANTAGE 250 ML IV SCH ×2 (07:21→20:14)
[2018-01-27] MEDS: atorvastatin 10mg tablet PO SCH (07:22)
[2018-01-27] MEDS: mupirocin 2% nasal ointment 1gm UD NS SCH ×2 (07:22→20:14)
[2018-01-27] MEDS: metoprolol tartrate 12.5mg (1/2 tablet) PO SCH ×2 (07:22→20:00)
[2018-01-27] MEDS: aspirin 325mg tablet, delayed-release (Ecotrin) PO SCH (07:22)
[2018-01-27] MEDS: docusate sod 100mg capsule PO SCH ×2 (07:22→20:14)
[2018-01-27] MEDS: pantoprazole 40mg Tablet.DR PO SCH (07:22)
[2018-01-27] MEDS ORDERED: ketorolac tromethamine 15mg/ml inj. IV ONE (08:15)
[2018-01-27] MEDS ORDERED: albumin (human) 25% 100 ML IV solution IV ONE (09:00)
[2018-01-27] MEDS: insulin Lispro (HumaLOG) vial - multi-dose SQ SCH ×3 (09:00→18:00)
[2018-01-27] MEDS ORDERED: magnesium sulf 1 GM/2 ML ONE (09:00)
[2018-01-27] MEDS ORDERED: phenylephrine 10mg/ml inj. ONE (09:00)
[2018-01-27] MEDS ORDERED: heparin 1,000 units/ml 10ml inj ONE (09:00)
[2018-01-27] MEDS ORDERED: methylPREDNISolone sod succ 1000mg vial ONE (09:00)
[2018-01-27] MEDS ORDERED: sodium bicarbonate (8.4%) 1 mEq/ml syringe ONE (09:00)
[2018-01-27] MEDS ORDERED: heparin 10,000 units/1 ML INJ ONE (09:00)
[2018-01-27] MEDS ORDERED: calcium chloride 100 MG/1 ML inj IV ONE (09:00)
[2018-01-27] MEDS ORDERED: aminocaproic acid 250 MG/1 ML inj. ONE (09:00)
[2018-01-27] MEDS ORDERED: LIDOcaine 2% (20 mg/ml) 5ml cardiac syringe ONE (09:00)
[2018-01-27] MEDS ORDERED: ketorolac tromethamine 15mg/ml inj. IM PRN (17:30)
[2018-01-27] MEDS: lactobacillus rhamnosus 10,000 MMU CELLS/CAPSULE PO SCH (20:14)
[2018-01-27] MEDS ORDERED: dextrose 50%-water 50ml dispensing syringe IV PRN ×2 (20:40)
[2018-01-27] MEDS ORDERED: dextrose ORAL solution 15 GM/59 ML bottle PO PRN ×2 (20:40)
[2018-01-27] MEDS ORDERED: glucagon, human recombinant 1mg kit SUBCUT PRN (20:40)
[2018-01-27] MEDS: insulin glargine (Lantus) pen - multi-dose SQ SCH (21:00)
[2018-01-28] VITALS (23 sets, daily range): BP systolic 104–149; BP diastolic 56–75
[2018-01-28] MEDS: morphine 4 MG/ML inj SYRINge IV PRN (00:27)
[2018-01-28 04:12] LABS: BASOPHILS % (AUTO) 0.1 % (0-1); EOSINOPHILS % (AUTO) 0 % (0-6); HEMATOCRIT 30.3 % (35.0-45.0); HEMOGLOBIN 10.2 g/dl (12.0-16.0); LYMPHOCYTES # (AUTO) 0.8 X10'3 (1.1-4.8); LYMPHOCYTES % (AUTO) 4.5 % (21-51); MEAN CORPUSCULAR HEMOGLOBIN 33.3 PG (27.0-31.0); MEAN CORPUSCULAR HGB CONC 33.8 % (33.0-36.5); MEAN CORPUSCULAR VOLUME 98.5 FL (78-98); MEAN PLATELET VOLUME 8.5 FL (7.4-10.4); MONOCYTES # (AUTO) 1.2 X10'3 (0-0.9); MONOCYTES % (AUTO) 7.1 % (2-12); NEUTROPHILS # (AUTO) 15.1 X10'3 (1.8-7.7); NEUTROPHILS % (AUTO) 88.3 % (42-75); PLATELET COUNT 133 X10'3 (140-440); RED BLOOD COUNT 3.07 X10'6 (4.20-5.60); RED CELL DISTRIBUTION WIDTH 13.8 % (11.5-14.5); WHITE BLOOD COUNT 17.1 X10'3 (4.5-11.0)
[2018-01-28 04:23] LABS: ALBUMIN 2.8 G/DL (3.4-5.0); ANION GAP 10 (8-16); BLOOD UREA NITROGEN 49 MG/DL (7-18); BUN/CREATININE RATIO 27.1 (6.6-38.0); CALCIUM 8.4 MG/DL (8.5-10.1); CHLORIDE 103 MMOL/L (99-107); CREATININE 1.81 MG/DL (0.40-0.90); GLUCOSE 255 MG/DL (70-104); MAGNESIUM 2.8 MG/DL (1.5-2.4); PHOSPHORUS 6.4 MG/DL (2.3-4.5); POTASSIUM 5.2 MMOL/L (3.5-5.1); SODIUM 135 MMOL/L (135-145); TOTAL CARBON DIOXIDE 21.6 MMOL/L (24-32); eGFR 27 ML/MIN
[2018-01-28] MEDS: insulin regular, human inj. 100 UNITS in normal saline 100ml IV soln 100 ML IV SCH ×2 (06:00)
[2018-01-28] MEDS: HYDROcodone/acetaminophen 10/325mg tab PO PRN ×5 (06:29→23:19)
[2018-01-28] MEDS: lactobacillus rhamnosus 10,000 MMU CELLS/CAPSULE PO SCH ×2 (08:08→19:09)
[2018-01-28] MEDS: atorvastatin 10mg tablet PO SCH (08:08)
[2018-01-28] MEDS: metoprolol tartrate 12.5mg (1/2 tablet) PO SCH ×2 (08:08→19:09)
[2018-01-28] MEDS: aspirin 325mg tablet, delayed-release (Ecotrin) PO SCH (08:08)
[2018-01-28] MEDS: docusate sod 100mg capsule PO SCH ×2 (08:08→19:09)
[2018-01-28] MEDS: sodium chloride 0.45% 1,000 ML IV SCH ×2 (08:09→12:49)
[2018-01-28] MEDS: pantoprazole 40mg Tablet.DR PO SCH (08:09)
[2018-01-28] MEDS: mupirocin 2% nasal ointment 1gm UD NS SCH (08:09)
[2018-01-28] MEDS: insulin Lispro (HumaLOG) vial - multi-dose SQ SCH ×3 (09:16→13:46)
[2018-01-28] MEDS: DOBUTamine-DoBUTrex 500mg/D5W 250 ML IV SCH (11:05)
[2018-01-28] MEDS: ondansetron/PF 4mg/2ml inj IV PRN (13:03)
[2018-01-28] MEDS ORDERED: gabapentin 300mg capsule PO SCH (15:25)
[2018-01-28] MEDS ORDERED: gabapentin 100mg capsule PO ONE (15:45)
[2018-01-28] MEDS: gabapentin 100mg capsule PO SCH (19:09)
[2018-01-28] MEDS: insulin glargine (Lantus) pen - multi-dose SQ SCH (23:21)
[2018-01-29] VITALS (24 sets, daily range): BP systolic 109–147; BP diastolic 55–77
[2018-01-29] MEDS: sodium chloride 0.45% 1,000 ML IV SCH (00:02)
[2018-01-29 02:49] LABS: BASOPHILS % (AUTO) 0.1 % (0-1); EOSINOPHILS # (AUTO) 0.1 X10'3 (0-0.9); EOSINOPHILS % (AUTO) 0.6 % (0-6); HEMATOCRIT 28.8 % (35.0-45.0); HEMOGLOBIN 9.8 g/dl (12.0-16.0); LYMPHOCYTES # (AUTO) 0.9 X10'3 (1.1-4.8); LYMPHOCYTES % (AUTO) 7.1 % (21-51); MEAN CORPUSCULAR HEMOGLOBIN 33.3 PG (27.0-31.0); MEAN CORPUSCULAR VOLUME 97.9 FL (78-98); MEAN PLATELET VOLUME 8.1 FL (7.4-10.4); MONOCYTES # (AUTO) 1.2 X10'3 (0-0.9); MONOCYTES % (AUTO) 8.9 % (2-12); NEUTROPHILS # (AUTO) 10.9 X10'3 (1.8-7.7); NEUTROPHILS % (AUTO) 83.3 % (42-75); PLATELET COUNT 118 X10'3 (140-440); RED BLOOD COUNT 2.94 X10'6 (4.20-5.60); RED CELL DISTRIBUTION WIDTH 13.1 % (11.5-14.5); WHITE BLOOD COUNT 13.1 X10'3 (4.5-11.0)
[2018-01-29 02:59] LABS: ALBUMIN 2.5 G/DL (3.4-5.0); ANION GAP 12 (8-16); BLOOD UREA NITROGEN 54 MG/DL (7-18); CHLORIDE 102 MMOL/L (99-107); CREATININE 1.35 MG/DL (0.40-0.90); GLUCOSE 118 MG/DL (70-104); MAGNESIUM 2.7 MG/DL (1.5-2.4); PHOSPHORUS 3.7 MG/DL (2.3-4.5); POTASSIUM 4.5 MMOL/L (3.5-5.1); SODIUM 134 MMOL/L (135-145); TOTAL CARBON DIOXIDE 20.5 MMOL/L (24-32); eGFR 38 ML/MIN
[2018-01-29] MEDS: insulin regular, human inj. 100 UNITS in normal saline 100ml IV soln 100 ML IV SCH ×2 (06:00)
[2018-01-29] MEDS: docusate sod 100mg capsule PO SCH ×2 (07:56→19:14)
[2018-01-29] MEDS: metoprolol tartrate 12.5mg (1/2 tablet) PO SCH ×2 (07:56→19:15)
[2018-01-29] MEDS: gabapentin 100mg capsule PO SCH ×3 (07:56→21:00)
[2018-01-29] MEDS: aspirin 325mg tablet, delayed-release (Ecotrin) PO SCH (07:56)
[2018-01-29] MEDS: lactobacillus rhamnosus 10,000 MMU CELLS/CAPSULE PO SCH ×2 (07:56→19:14)
[2018-01-29] MEDS: pantoprazole 40mg Tablet.DR PO SCH (07:56)
[2018-01-29] MEDS: atorvastatin 10mg tablet PO SCH (07:56)
[2018-01-29] MEDS: HYDROcodone/acetaminophen 10/325mg tab PO PRN ×3 (08:40→21:00)
[2018-01-29] MEDS: insulin Lispro (HumaLOG) vial - multi-dose SQ SCH ×3 (09:15→19:22)
[2018-01-29] MEDS: ondansetron/PF 4mg/2ml inj IV PRN (12:54)
[2018-01-29] MEDS: insulin glargine (Lantus) pen - multi-dose SQ SCH (21:05)
[2018-01-30] VITALS (24 sets, daily range): BP systolic 110–154; BP diastolic 55–81
[2018-01-30 03:24] LABS: BASOPHILS % (AUTO) 0.2 % (0-1); EOSINOPHILS # (AUTO) 0.2 X10'3 (0-0.9); EOSINOPHILS % (AUTO) 1.4 % (0-6); HEMATOCRIT 28.8 % (35.0-45.0); LYMPHOCYTES # (AUTO) 0.8 X10'3 (1.1-4.8); LYMPHOCYTES % (AUTO) 7.1 % (21-51); MEAN CORPUSCULAR HEMOGLOBIN 33.8 PG (27.0-31.0); MEAN CORPUSCULAR HGB CONC 34.7 % (33.0-36.5); MEAN CORPUSCULAR VOLUME 97.6 FL (78-98); MEAN PLATELET VOLUME 8.5 FL (7.4-10.4); MONOCYTES % (AUTO) 9.4 % (2-12); NEUTROPHILS % (AUTO) 81.9 % (42-75); PLATELET COUNT 138 X10'3 (140-440); RED BLOOD COUNT 2.95 X10'6 (4.20-5.60)
[2018-01-30 03:36] LABS: ALBUMIN 2.3 G/DL (3.4-5.0); ANION GAP 9 (8-16); BLOOD UREA NITROGEN 45 MG/DL (7-18); BUN/CREATININE RATIO 52.3 (6.6-38.0); CALCIUM 7.9 MG/DL (8.5-10.1); CHLORIDE 103 MMOL/L (99-107); CREATININE 0.86 MG/DL (0.40-0.90); GLUCOSE 172 MG/DL (70-104); MAGNESIUM 2.4 MG/DL (1.5-2.4); PHOSPHORUS 2.6 MG/DL (2.3-4.5); POTASSIUM 4.4 MMOL/L (3.5-5.1); SODIUM 134 MMOL/L (135-145); TOTAL CARBON DIOXIDE 22.4 MMOL/L (24-32); eGFR 64 ML/MIN
[2018-01-30] MEDS: DOBUTamine-DoBUTrex 500mg/D5W 250 ML IV SCH (05:32)
[2018-01-30] MEDS: insulin regular, human inj. 100 UNITS in normal saline 100ml IV soln 100 ML IV SCH ×2 (05:32)
[2018-01-30] MEDS: pantoprazole 40mg Tablet.DR PO SCH (07:12)
[2018-01-30] MEDS: insulin Lispro (HumaLOG) vial - multi-dose SQ SCH ×2 (09:04→13:35)
[2018-01-30] MEDS ORDERED: docusate sod 100mg capsule PO ONE (09:05)
[2018-01-30] MEDS: atorvastatin 10mg tablet PO SCH (09:06)
[2018-01-30] MEDS: docusate sod 100mg capsule PO SCH ×2 (09:06→20:19)
[2018-01-30] MEDS: lactobacillus rhamnosus 10,000 MMU CELLS/CAPSULE PO SCH ×2 (09:06→20:19)
[2018-01-30] MEDS: aspirin 325mg tablet, delayed-release (Ecotrin) PO SCH (09:06)
[2018-01-30] MEDS: metoprolol tartrate 12.5mg (1/2 tablet) PO SCH ×2 (09:06→20:18)
[2018-01-30] MEDS: gabapentin 100mg capsule PO SCH ×3 (09:06→20:52)
[2018-01-30] MEDS: sodium chloride 0.45% 1,000 ML IV SCH (12:18)
[2018-01-30] MEDS: ondansetron/PF 4mg/2ml inj IV PRN (16:03)
[2018-01-30] MEDS: HYDROcodone/acetaminophen 10/325mg tab PO PRN (18:49)
[2018-01-30] MEDS: insulin glargine (Lantus) pen - multi-dose SQ SCH (20:56)
[2018-01-30] MEDS: magnesium hydroxide 30ml (MOM) UD suspension PO PRN (21:12)
[2018-01-31] VITALS (23 sets, daily range): BP systolic 118–158; BP diastolic 61–80
[2018-01-31 02:50] LABS: BASOPHILS % (AUTO) 0.3 % (0-1); EOSINOPHILS # (AUTO) 0.3 X10'3 (0-0.9); EOSINOPHILS % (AUTO) 2.8 % (0-6); HEMATOCRIT 30.7 % (35.0-45.0); HEMOGLOBIN 10.7 g/dl (12.0-16.0); LYMPHOCYTES # (AUTO) 0.9 X10'3 (1.1-4.8); LYMPHOCYTES % (AUTO) 8.7 % (21-51); MEAN CORPUSCULAR HEMOGLOBIN 33.3 PG (27.0-31.0); MEAN CORPUSCULAR HGB CONC 34.8 % (33.0-36.5); MEAN CORPUSCULAR VOLUME 95.8 FL (78-98); MONOCYTES % (AUTO) 9.3 % (2-12); NEUTROPHILS # (AUTO) 8.5 X10'3 (1.8-7.7); NEUTROPHILS % (AUTO) 78.9 % (42-75); PLATELET COUNT 203 X10'3 (140-440); RED CELL DISTRIBUTION WIDTH 12.8 % (11.5-14.5); WHITE BLOOD COUNT 10.7 X10'3 (4.5-11.0)
[2018-01-31 02:58] LABS: ALANINE AMINOTRANSFERASE 90 U/L (12-78); ALBUMIN 2.3 G/DL (3.4-5.0); ALBUMIN/GLOBULIN RATIO 0.8 (1.1-1.5); ALKALINE PHOSPHATASE 501 IU/L (46-116); ANION GAP 5 (8-16); ASPARTATE AMINO TRANSFERASE 156 U/L (10-37); BILIRUBIN,TOTAL 0.9 MG/DL (0.1-1.0); BLOOD UREA NITROGEN 34 MG/DL (7-18); BUN/CREATININE RATIO 37.8 (6.6-38.0); CALCIUM 8.1 MG/DL (8.5-10.1); CHLORIDE 104 MMOL/L (99-107); GLUCOSE 167 MG/DL (70-104); MAGNESIUM 2.1 MG/DL (1.5-2.4); PHOSPHORUS 2.4 MG/DL (2.3-4.5); POTASSIUM 4.7 MMOL/L (3.5-5.1); SODIUM 134 MMOL/L (135-145); TOTAL CARBON DIOXIDE 24.9 MMOL/L (24-32); TOTAL PROTEIN 5.2 G/DL (6.4-8.2); eGFR 61 ML/MIN
[2018-01-31] MEDS: sodium chloride 0.45% 1,000 ML IV SCH (03:48)
[2018-01-31] MEDS: magnesium 1gm/100ml D5W IVPB 100 ML IV PRN ×2 (03:48→04:43)
[2018-01-31] MEDS: insulin regular, human inj. 100 UNITS in normal saline 100ml IV soln 100 ML IV SCH ×2 (06:00)
[2018-01-31] MEDS: pantoprazole 40mg Tablet.DR PO SCH (08:17)
[2018-01-31] MEDS: atorvastatin 10mg tablet PO SCH (08:57)
[2018-01-31] MEDS: metoprolol tartrate 12.5mg (1/2 tablet) PO SCH ×2 (08:57→20:53)
[2018-01-31] MEDS: lactobacillus rhamnosus 10,000 MMU CELLS/CAPSULE PO SCH ×2 (08:57→20:53)
[2018-01-31] MEDS: gabapentin 100mg capsule PO SCH ×3 (08:57→20:53)
[2018-01-31] MEDS: docusate sod 100mg capsule PO SCH ×2 (08:58→20:53)
[2018-01-31] MEDS: aspirin 325mg tablet, delayed-release (Ecotrin) PO SCH (08:58)
[2018-01-31] MEDS: insulin Lispro (HumaLOG) vial - multi-dose SQ SCH ×3 (09:38→19:13)
[2018-01-31] MEDS: magnesium hydroxide 30ml (MOM) UD suspension PO PRN (13:32)
[2018-01-31] MEDS: insulin glargine (Lantus) pen - multi-dose SQ SCH (21:00)
[2018-02-01] VITALS (14 sets, daily range): BP systolic 106–174; BP diastolic 61–85
[2018-02-01] MEDS: metoprolol tartrate 12.5mg (1/2 tablet) PO SCH ×2 (08:52→19:12)
[2018-02-01] MEDS: docusate sod 100mg capsule PO SCH ×2 (08:53→19:12)
[2018-02-01] MEDS: lactobacillus rhamnosus 10,000 MMU CELLS/CAPSULE PO SCH ×2 (08:53→19:32)
[2018-02-01] MEDS: aspirin 325mg tablet, delayed-release (Ecotrin) PO SCH (08:53)
[2018-02-01] MEDS: atorvastatin 10mg tablet PO SCH (08:53)
[2018-02-01] MEDS: gabapentin 100mg capsule PO SCH ×4 (08:54→21:00)
[2018-02-01] MEDS ORDERED: magnesium citrate 296ml oral solution PO ONE (09:05)
[2018-02-01] MEDS ORDERED: potassium Cl 40MEQ/NS 500ml 500 ML IV PRN ×2 (09:05)
[2018-02-01] MEDS ORDERED: magnesium 4gm in 100ml NS 100 ML IV PRN (09:05)
[2018-02-01] MEDS ORDERED: magnesium 1gm/100ml D5W IVPB 100 ML IV PRN (09:05)
[2018-02-01] MEDS ORDERED: magnesium Cl slow-release 64mg tablet PO PRN (09:05)
[2018-02-01] MEDS ORDERED: potassium Cl 20 mEq SR tablet PO PRN ×2 (09:05)
[2018-02-01] MEDS: HYDROcodone/acetaminophen 10/325mg tab PO PRN ×2 (13:35→21:43)
[2018-02-01] MEDS: insulin Lispro (HumaLOG) vial - multi-dose SQ SCH ×2 (13:39→18:59)
[2018-02-01] MEDS: magnesium Cl slow-release 64mg tablet PO SCH (19:17)
[2018-02-01] MEDS: potassium Cl 20 mEq SR tablet PO SCH (19:17)
[2018-02-01] MEDS: insulin glargine (Lantus) pen - multi-dose SQ SCH (21:00)
[2018-02-02 03:00] VITALS: BP 133/97
[2018-02-02 05:21] LABS: BASOPHILS % (AUTO) 0.2 % (0-1); EOSINOPHILS # (AUTO) 0.4 X10'3 (0-0.9); EOSINOPHILS % (AUTO) 3.4 % (0-6); HEMOGLOBIN 10.6 g/dl (12.0-16.0); LYMPHOCYTES # (AUTO) 0.9 X10'3 (1.1-4.8); LYMPHOCYTES % (AUTO) 7.4 % (21-51); MEAN CORPUSCULAR HEMOGLOBIN 32.3 PG (27.0-31.0); MEAN CORPUSCULAR HGB CONC 33.1 % (33.0-36.5); MEAN CORPUSCULAR VOLUME 97.5 FL (78-98); MEAN PLATELET VOLUME 7.6 FL (7.4-10.4); MONOCYTES # (AUTO) 1.2 X10'3 (0-0.9); MONOCYTES % (AUTO) 9.5 % (2-12); NEUTROPHILS # (AUTO) 10.1 X10'3 (1.8-7.7); NEUTROPHILS % (AUTO) 79.5 % (42-75); PLATELET COUNT 359 X10'3 (140-440); RED BLOOD COUNT 3.28 X10'6 (4.20-5.60); RED CELL DISTRIBUTION WIDTH 14.4 % (11.5-14.5); WHITE BLOOD COUNT 12.7 X10'3 (4.5-11.0)
[2018-02-02 05:51] LABS: ALBUMIN 2.1 G/DL (3.4-5.0); ANION GAP 4 (8-16); BLOOD UREA NITROGEN 21 MG/DL (7-18); BUN/CREATININE RATIO 26.3 (6.6-38.0); CALCIUM 8.1 MG/DL (8.5-10.1); CHLORIDE 104 MMOL/L (99-107); GLUCOSE 63 MG/DL (70-104); MAGNESIUM 2.2 MG/DL (1.5-2.4); POTASSIUM 4.5 MMOL/L (3.5-5.1); SODIUM 135 MMOL/L (135-145); eGFR 69 ML/MIN
[2018-02-02 07:00] VITALS: BP 152/82
[2018-02-02] MEDS ORDERED: lactose-reduced food (Ensure High Protein) 237ml bottle PO SCH (07:30)
[2018-02-02] MEDS: potassium Cl 20 mEq SR tablet PO SCH (08:00)
[2018-02-02] MEDS: magnesium Cl slow-release 64mg tablet PO SCH (08:00)
[2018-02-02] MEDS ORDERED: K and/or MAG REPLACEMENT MC SCH (08:00)
[2018-02-02] MEDS: pantoprazole 40mg Tablet.DR PO SCH ×2 (09:12→09:13)
[2018-02-02] MEDS: lactobacillus rhamnosus 10,000 MMU CELLS/CAPSULE PO SCH (09:12)
[2018-02-02] MEDS: aspirin 325mg tablet, delayed-release (Ecotrin) PO SCH (09:13)
[2018-02-02] MEDS: docusate sod 100mg capsule PO SCH (09:13)
[2018-02-02] MEDS: metoprolol tartrate 12.5mg (1/2 tablet) PO SCH (09:27)
[2018-02-02] MEDS: atorvastatin 10mg tablet PO SCH (09:27)
[2018-02-02] MEDS: gabapentin 100mg capsule PO SCH ×2 (09:27→12:25)
[2018-02-02] MEDS: HYDROcodone/acetaminophen 10/325mg tab PO PRN (10:40)
[2018-02-02 11:00] VITALS: BP 143/73
[2018-02-02] MEDS: ondansetron/PF 4mg/2ml inj IV PRN (12:25)
== END 2018-02-02 15:00 | DRG 216 ==
LOC: SSTAY O 10:12 → PCU 3S 16:13 → PACU 01-26 07:04 → ICU 2S 01-26 12:23 → PCU 3S 02-01 12:10
PROVIDERS: ADMIT Internal Medicine Cardiovascular Disease; ATTEND Thoracic Surgery (Cardiothoracic Vascular Surgery)
PROC: 4A023N8 Measurement of Cardiac Sampling and Pressure, Bilateral, Percutaneous Approach (ICD-10-PCS; 2018-01-22)
PROC: B2111ZZ Fluoroscopy of Multiple Coronary Arteries using Low Osmolar Contrast (ICD-10-PCS; 2018-01-22)
PROC: B2151ZZ Fluoroscopy of Left Heart using Low Osmolar Contrast (ICD-10-PCS; 2018-01-22)
PROC: B4101ZZ Fluoroscopy of Abdominal Aorta using Low Osmolar Contrast (ICD-10-PCS; 2018-01-22)
PROC: B3111ZZ Fluoroscopy of Right Brachiocephalic-Subclavian Artery using Low Osmolar Contrast (ICD-10-PCS; 2018-01-22)
PROC: B3121ZZ Fluoroscopy of Left Subclavian Artery using Low Osmolar Contrast (ICD-10-PCS; 2018-01-22)
PROC: 02UG0JZ Supplement Mitral Valve with Synthetic Substitute, Open Approach (ICD-10-PCS; 2018-01-26)
PROC: 021309W Bypass Coronary Artery, Four or More Arteries from Aorta with Autologous Venous Tissue, Open Approach (ICD-10-PCS; 2018-01-26)
PROC: 06BQ4ZZ Excision of Left Saphenous Vein, Percutaneous Endoscopic Approach (ICD-10-PCS; 2018-01-26)
PROC: B246ZZ4 Ultrasonography of Right and Left Heart, Transesophageal (ICD-10-PCS; 2018-01-26)
PROC: 5A1221Z Performance of Cardiac Output, Continuous (ICD-10-PCS; 2018-01-26)
PROC: 02L70CK Occlusion of Left Atrial Appendage with Extraluminal Device, Open Approach (ICD-10-PCS; 2018-01-26)
PROC: 30233N1 Transfusion of Nonautologous Red Blood Cells into Peripheral Vein, Percutaneous Approach (ICD-10-PCS; 2018-01-26)
PROC: 02HV33Z Insertion of Infusion Device into Superior Vena Cava, Percutaneous Approach (ICD-10-PCS; 2018-01-26)
PROC: 02100Z9 Bypass Coronary Artery, One Artery from Left Internal Mammary, Open Approach (ICD-10-PCS; principal; 2018-01-26 06:46)
DX: I25.10 Atherosclerotic heart disease of native coronary artery without angina pectoris (principal); I50.23 Acute on chronic systolic (congestive) heart failure; I13.0 Hypertensive heart and chronic kidney disease with heart failure and stage 1 through stage 4 chronic kidney disease, or unspecified chronic kidney disease; N17.9 Acute kidney failure, unspecified; D64.9 Anemia, unspecified; E11.22 Type 2 diabetes mellitus with diabetic chronic kidney disease; F41.9 Anxiety disorder, unspecified; I25.5 Ischemic cardiomyopathy; I34.0 Nonrheumatic mitral (valve) insufficiency; I49.3 Ventricular premature depolarization; I50.82 Biventricular heart failure; K59.00 Constipation, unspecified; F01.50 Vascular dementia, unspecified severity, without behavioral disturbance, psychotic disturbance, mood disturbance, and anxiety; E87.6 Hypokalemia; M19.90 Unspecified osteoarthritis, unspecified site; N18.9 Chronic kidney disease, unspecified; G89.29 Other chronic pain; Z95.5 Presence of coronary angioplasty implant and graft; Z79.899 Other long term (current) drug therapy; Z88.5 Allergy status to narcotic agent; Z82.49 Family history of ischemic heart disease and other diseases of the circulatory system
CPT/HCPCS: 0232T; 93306; 93312; 93325; 93460; 93567; 36415; 36600; 71045; 80048; 80053; 82330; 82435; 82803; 82947; 82948; 83036; 83735; 83880; 84100; 84132; 84145; 84295; 85014; 85018; 85025; 85027; 85347; 85384; 85610; 85730; 86885; 86900; 86901; 86920; 87070; 93005; 93880; 93971; 94002; 94003; 94060; 94668; 94760; 97110; 97116; 97162; 97530; 99152; 99153; A4620; A6257; A6258; A6402; A6449; A7000; A7048; C1760; C1769; J0360; J0690; J1250; J1265; J1644; J1815; J1885; J1940; J2001; J2060; J2150; J2250; J2270; J2370; J2405; J2440; J2704; J2720; J2920; J2930; J3010; J3370; J3475; J3480; J3490; J7030; J7120; P9016; P9045; P9047; Q0163; Q9967